=== PATIENT | male | born 1975 | race American Indian/Alaskan Native ===

== ENCOUNTER 2016-12-31 17:52 | Emergency (ER) | payer SELFPAY ==
[2016-12-31 20:36] LABS: Bilirubin,Urine MOD (Negative); Blood,Urine NEG (Negative); Ketones,Urine TR mg/dL (Negative); Leukocyte Esterase,Urine NEG (Negative); Mucus,Urine 3+ /HPF; Nitrite,Urine NEG (Negative)
[2017-01-01] MEDS ORDERED: ZOFRAN IM ONE (01:05)
[2017-01-01] MEDS ORDERED: SUBLIMAZE IM ONE (01:05)
--- NOTE | 2017-01-01 01:10 | Emergency Department Report ---
HPI - General Chief Complaint: Dyspnea/Respdistress Time Seen by Provider: 01/01/17 00:59 - HPI HPI: Room 6 The patient is a 41-year-old male presenting with chief complaint of back pain and difficulty urinating. The patient states yesterday he developed low back pain as he has not been urinating much. Patient states he was able to provide a very small amount of urine for urinalysis today in the ED. She denies abdominal pain but does admit to nausea and vomiting. Patient describes his back pain is stabbing and constant with a waxing and waning component. Patient denies any history of fever. The patient gets his pain is score of 7/10. Location: Low back Duration: Constant since yesterday Quality: Stabbing Severity: 7/10 Modifying factors: [see above] Context: [see above] Mode of transportation: [not driving] ED Past Medical Hx - Past Medical History Hx Hypertension: Yes - Surgical History Hx Cholecystectomy: Yes Additional Surgical History: Left upper extremity fracture repair - Family History Family history: no significant - Social History Smoking Status: Former Smoker Substance Use Type: None (denies illicit drug use) - Medications Home Medications: Home Medications Medication Instructions Recorded Confirmed Last Taken Type Metaxalone [Skelaxin] 800 mg PO TID #10 tablet 01/01/17 Unknown Rx Sulfamethoxazole/Trimethoprim 1 each PO BID #14 tablet 01/01/17 Unknown Rx [Bactrim DS TAB] ED Review of Systems ROS: Stated complaint: BACK , FLANK PAIN Other details as noted in HPI Comment: All other systems reviewed and negative Constitutional: denies: chills, fever Eyes: denies: eye pain, eye discharge, vision change ENT: denies: ear pain, throat pain Respiratory: denies: cough, shortness of breath, wheezing Cardiovascular: denies: chest pain, palpitations Endocrine: no symptoms reported Gastrointestinal: nausea, vomiting. denies: abdominal pain, diarrhea Genitourinary: other (oliguria) Musculoskeletal: back pain Skin: denies: rash, lesions Neurological: denies: headache, weakness, paresthesias Psychiatric: denies: anxiety, depression Physical Exam - Physical Exam Vital Signs: Vital Signs 12/31/16 01/01/17 18:23 00:05 Temperature 98.7 F 98.3 F Pulse Rate 103 H 87 Respiratory 20 16 Rate Blood Pressure 109/57 Blood Pressure 118/78 [Left] O2 Sat by Pulse 95 96 Oximetry Physical Exam: GENERAL: The patient is well-developed well-nourished male lying on stretcher sleeping not appearing to be in acute distress. [] HEENT: Normocephalic. Atraumatic. Extraocular motions are intact. Patient has moist mucous membranes. NECK: Supple. Trachea midline CHEST/LUNGS: Clear to auscultation. There is no respiratory distress noted. HEART/CARDIOVASCULAR: Regular. There is no tachycardia. There is no gallop rub or murmur. ABDOMEN: Abdomen is soft, nontender. Patient has normal bowel sounds. There is no abdominal distention. SKIN: There is no rash. There is no edema. There is no diaphoresis. NEURO: The patient is awake, alert, and oriented. The patient is cooperative. The patient has normal speech MUSCULOSKELETAL:There is no evidence of acute injury. ED Course Vital Signs 12/31/16 01/01/17 18:23 00:05 Temperature 98.7 F 98.3 F Pulse Rate 103 H 87 Respiratory 20 16 Rate Blood Pressure 109/57 Blood Pressure 118/78 [Left] O2 Sat by Pulse 95 96 Oximetry ED Medical Decision Making - Lab Data Result diagrams: 01/01/17 01:11 01/01/17 01:11 Laboratory Tests 12/31/16 01/01/17 01/01/17 20:13 01:11 01:11 WBC 3.6 L RBC 5.04 H Hgb 15.2 Hct 44.7 MCV 89 MCH 30 MCHC 34 RDW 13.8 Plt Count 192 [place] % (Auto) Vacuum Caster Carbon Dioxide 26 BUN 16 Creatinine 1.2 Estimated GFR > 60 BUN/Creatinine Ratio 13 Glucose 121 H Calcium 8.7 Urine Color Red Urine Turbidity Clear Urine pH 5.0 Ur Specific [place] 1.048 H Urine Protein 100 mg/dl Urine Glucose (UA) Neg Urine Ketones Tr Urine Blood Neg Urine Nitrite Neg Urine Bilirubin Mod Urine Ictotest Positive Urine Urobilinogen 4.0 Ur Leukocyte Esterase Neg Urine WBC (Auto) 7.0 H Urine RBC (Auto) 3.0 U Epithel Cells (Auto) 1.0 Ur Transition Epith Cell 1 Urine Mucus 3+ Sodium 135, potassium 3.9, chloride 93.3 - Radiology Data Radiology results: report reviewed (CT abdomen and pelvis), image reviewed (CT abdomen and pelvis) CT abdomen and pelvis (read by radiologist)-no obstructive uropathy or urolithiasis. - Differential Diagnosis renal colic, UTI, urinary retention Critical care attestation.: If time is entered above; I have spent that time in minutes in the direct care of this critically ill patient, excluding procedure time. ED Disposition Clinical Impression: Dehydration, UTI (urinary tract infection) Disposition: TO HOME OR SELFCARE Is pt being admited?: No Does the pt Need Aspirin: No Condition: Stable Instructions: Urinary Tract Infection in Men (ED) Additional Instructions: Return to the emergency department immediately should you develop worsening symptoms, fever, inability to tolerate food or liquid or any other concerns. Prescriptions: Metaxalone [Skelaxin] 800 mg PO TID #10 tablet Sulfamethoxazole/Trimethoprim [Bactrim DS TAB] 1 each PO BID #14 tablet Referrals: PRIMARY CARE, [Primary Care Provider] - 3-5 Days YARELIS GARCIA MD [Staff Physician] - 3-5 Days (Dr. Garcia is a urologist. Please follow up with him for further evaluation) Time of Disposition: 02:16 (d/c p ivf)
[2017-01-01 01:23] LABS: Hematocrit 44.7 % (35.5-45.6); Hemoglobin 15.2 gm/dl (11.8-15.2); Mean Corpuscular HGB Conc 34 % (32-34); Mean Corpuscular Hemoglobin 30 pg (28-32); Mean Corpuscular Volume 89 fl (84-94); Platelet Count 192 K/mm3 (140-440); Red Blood Count 5.04 M/mm3 (3.65-5.03); Red Cell Distribution Width 13.8 % (13.2-15.2); White Blood Count 3.6 K/mm3 (4.5-11.0)
[2017-01-01 01:44] LABS: Anion Gap 20 mmol/L; BUN/Creatinine Ratio 13; Blood Urea Nitrogen 16 mg/dL (9-20); Calcium 8.7 mg/dL (8.4-10.2); Carbon Dioxide 26 mmol/L (22-30); Chloride 93.3 mmol/L (98-107); Glucose 121 mg/dL (75-100); Potassium 3.9 mmol/L (3.6-5.0); Sodium 135 mmol/L (137-145)
--- NOTE | 2017-01-01 02:01 | Cat Scan Report ---
FINAL REPORT EXAM: CT ABDOMEN PELVIS WO CON HISTORY: bilateral flank pain, oliguria COMPARISON: None available. TECHNIQUE: Contiguous axial images were obtained. Coronal reformats obtained. FINDINGS: Mild atelectasis at the lung bases. Mild diffuse fatty infiltration of the liver. Gallbladder is surgically absent. Common bile duct measures 7-8 millimeters which may relate to patient's post cholecystectomy state. No obstructive lesion identified along the course of the common bile duct. Spleen is enlarged measuring 17 centimeters. Liver is enlarged measuring 25 centimeters. Pancreas and adrenal glands are grossly unremarkable. No nephrolithiasis or hydronephrosis. Aorta and IVC normal in caliber. No distal ureteral or urinary bladder calculi. Urinary bladder and prostate gland are grossly unremarkable. There are few pelvic phleboliths. The appendix is gas-filled. No inflammatory changes of the appendix. The appendix measures up to 7-8 millimeters, upper limits normal for patient age. No focal inflammatory changes the bowel. No bowel obstruction. Bony pelvis and lumbar spine are grossly intact. IMPRESSION: No obstructive uropathy or urolithiasis. Mild enlargement of the liver with fatty infiltration moderate enlargement of the spleen. Gallbladder surgically absent. Mild prominence of the common bile duct which may relate to patient's post cholecystectomy state. No obstructive lesion identified along the course the common bile duct. Large and small bowel loops normal in caliber. The appendix measures 7-8 millimeters in diameter. This is upper limits normal for patient age. No adjacent fat stranding or fluid to suggest acute inflammation of the appendix by CT at this time. Clinical correlation is needed.
[2017-01-01] MEDS ORDERED: NACL 0.9% 1000 ML 1,000 ML IV ONE (02:10)
[2017-01-01 03:23] LABS: Anisocytosis Few; Blastocytes % (Manual) 0 %; Diff Status Complete; Hypochromasia Few
[2017-01-01 04:37] VITALS: BP 109/73
== END 2017-01-01 04:41 | disposition home or self-care (01) ==
LOC: ED 17:52
DX: N39.0 Urinary tract infection, site not specified (principal); E86.0 Dehydration; I10 Essential (primary) hypertension; Z87.891 Personal history of nicotine dependence
CPT/HCPCS: 36415; 74176; 80048; 81001; 85007; 85025; 93005; 93010; 96360; 96361; 96372; 99284; J2405; J3010; J7030